=== PATIENT | male | born 1965 | race Caucasian/White ===

== ENCOUNTER 2020-09-06 14:17 | Emergency (ER) | payer MEDICAID ==
[~2020-09-06] VITALS: Ht 170.2 cm; Wt 70.3 kg
[2020-09-06 14:20] VITALS: BP 141/86
[2020-09-06] MEDS ORDERED: LIDOCAINE 2% 1000 MG/50 ML VIAL INJ ONE (14:23)
[2020-09-06] MEDS: LIDOCAINE 2% 1000 MG/50 ML VIAL INJ ONE (14:46)
[2020-09-06] MEDS: BACITRACIN OINT 500 UNITS/GM PKT TP ONE (15:27)
[2020-09-06 15:35] VITALS: BP 141/86
== END 2020-09-06 15:35 ==
LOC: MED 14:17
DX: S01.111A Laceration without foreign body of right eyelid and periocular area, initial encounter (principal); S06.0X0A Concussion without loss of consciousness, initial encounter; F10.96 Alcohol use, unspecified with alcohol-induced persisting amnestic disorder; X58.XXXA Exposure to other specified factors, initial encounter; Y93.89 Activity, other specified; Y92.89 Other specified places as the place of occurrence of the external cause; Y99.8 Other external cause status
CPT/HCPCS: 12002; 70450; 99284; J2001